=== PATIENT | male | born 1965 | race Caucasian/White ===

== ENCOUNTER → 2021-03-19 | Outpatient (CLI) | payer BC ==
--- NOTE | 2021-03-19 15:34 | Diagnostic Imaging Report ---
PROCEDURE: MRI pelvis without contrast. TECHNIQUE: Multiplanar, multisequence MRI of the pelvis was performed without contrast. INDICATION: Right inguinal pain. COMPARISON: None available. FINDINGS: Soft tissues: No inguinal hernia on either side. No femoral or other pelvic hernia is appreciated. No free pelvic fluid. Urinary bladder is normal. Prostate is not enlarged. No pelvic or inguinal lymphadenopathy. Muscles and tendons: Bilateral rectus abdominis insertion on the pubic bodies are intact. No tear of the adductor musculatures on either side. The proximal hamstring complexes are normal. Gluteus medius and minimus insertions are intact on both sides with some mild tendinopathy. Bilateral distal iliopsoas tendons are normal. Bones: There is a small amount of T2 hyperintense bone marrow edema in the left pubic body. No osteonecrosis of the femoral heads. No insufficiency fracture within the sacrum. SI joints have no features of sacroiliitis. No hip effusion either side. IMPRESSION: 1. Mild bone marrow edema like signal in the left pubic body is most likely degenerative in nature and could be a source of focal pain. 2. No inguinal hernia. 3. No strain or tear of the rectus abdominis muscles or adductor muscles. Dictated by: Dictated on workstation # [id number]
== END ==
LOC: RAD 10:36
PROVIDERS: ATTEND Family Medicine
DX: R60.0 Localized edema (principal); R10.31 Right lower quadrant pain
CPT/HCPCS: 72195

== ENCOUNTER 2021-04-18 03:22 | Emergency (ER) | payer BC ==
[2021-04-18] MEDS ORDERED: FAMOTIDINE 20 MG (PEPCID) TABLET ONE (03:48)
[2021-04-18] MEDS ORDERED: predniSONE 20 MG TAB ONE (03:49)
--- NOTE | 2021-04-18 03:52 | ED Integumentary General ---
General Chief Complaint: Skin/Wound Problems Stated Complaint: ALLERGIC REACTION Nursing Triage Note: Pt presents with hives that are throughout his whole body. Pt was seen at urgent care for the same issue on Thursday and received a steroid shot which cleared it all up for him. He states the hives reappeared tonight. Pt complaining of itching and burning History of Present Illness Date Seen by Provider: Apr 18, 2021 Time Seen by Provider: 03:40 Initial Comments 55-year-old male presents with an itchy rash. Rash initially began, suddenly 2 days ago all over his body (extremities chest and back). He was seen in urgent care and given shot of steroid in his symptoms resolved and yesterday he was fine. Denies any night the rash returned, again all over his body he took 50 mg of Benadryl in the back to sleep. He presents now with rash continuing, moderately itchy. No mouth or tongue involvement, no difficulty breathing. No history of anaphylaxis. No recent illness, fever or chills. No new medications or foods, unknown etiology., Allergies and Home Medications Allergies Coded Allergies: No Known Drug Allergies (Unverified , 04/18/21) Patient Home Medication List Home Medication List Reviewed: Yes Review of Systems Review of Systems Constitutional: No fever, No malaise, No weakness EENTM: no symptoms reported Respiratory: no symptoms reported Musculoskeletal: No back pain, No joint pain, No muscle pain Skin: see HPI, pruritus, rash Past Jivqqsi-Hwcnyl-Lglhhu Hx Past Med/Social Hx: Reviewed Nursing Past Med/Soc Hx Patient Social History Alcohol Use: Denies Use Smoking Status: Never a Smoker 2nd Hand Smoke Exposure: No Recent Infectious Disease Expo: No Recent Hopitalizations: No Past Medical History Surgeries: No Respiratory: No Cardiac: No Neurological: No Genitourinary: No Gastrointestinal: Yes Gastroesophageal Reflux Musculoskeletal: No Endocrine: No HEENT: No Cancer: No Psychosocial: No Integumentary: No Blood Disorders: No Physical Exam Vital Signs Vital Signs - First Documented 04/18/21 03:25 Temp 36.7 Pulse 65 Resp 18 B/P (MAP) 116/68 (84) Pulse Ox 95 O2 Delivery Room Air Capillary Refill : Less Than 3 Seconds General Appearance: WD/WN, no apparent distress HEENT: PERRL/EOMI, normal ENT inspection Neck: non-tender, supple Respiratory: chest non-tender, lungs clear, normal breath sounds Back: normal inspection, no CVA tenderness Extremities: normal range of motion, non-tender, no pedal edema Neurologic/Psychiatric: no motor/sensory deficits, alert, normal mood/affect, oriented x 3 Skin: rash (diffuse, assymetrical erythematous wheals and plaques of UE and LE's as well as sparsely of chest and low back. Sparing face) Progress/Results/Core Measures Results/Orders My Orders Orders - RSIRAM OBREGON DO Famotidine Tablet (Pepcid Tablet) (04/18/21 04:00) Prednisone Tablet (Deltasone Tablet) (04/18/21 04:00) Vital Signs/I&O 04/18/21 03:25 Temp 36.7 Pulse 65 Resp 18 B/P (MAP) 116/68 (84) Pulse Ox 95 O2 Delivery Room Air Blood Pressure Mean: 84 Departure Impression Primary Impression: Urticaria Disposition: 01 HOME, SELF-CARE Condition: Improved Departure-Patient Inst. Decision time for Depature: 03:51 Referrals: SELFSTONEY MD (PCP/Family) Primary Care Physician Patient Instructions: Hives Add. Discharge Instructions: Follow up with your PCP in 1 week if not improving, ER sooner if worsening. Follow an elimination diet and keep a food diary in order to find a potential cause. Take 50mg Benadryl every 6 hours as needed for itchy rash. All discharge instructions reviewed with patient and/or family. Voiced understanding. Scripts Famotidine (Pepcid) 20 Mg Tablet 20 MG PO BID, #30 TAB Prov: SRIRAM OBREGON DO 04/18/21 Prednisone (Prednisone) 20 Mg Tab 60 MG PO DAILY, #27 TAB 0 Refills 3 tabs po daily for 4 days, then 2 tabs po daily for 5 days, then 2 tabs po daily for 5 days Prov: SRIRAM OBREGON DO 04/18/21 SRIRAM OBREGON DO Apr 18, 2021 03:52
[2021-04-18 03:53] VITALS: BP 116/68
[2021-04-18] MEDS ORDERED: PRD20T PO (03:56)
[2021-04-18] MEDS ORDERED: FAMO-119 PO (03:56)
[2021-04-18] MEDS ORDERED: predniSONE 20 MG TAB PO ONE (04:00)
[2021-04-18] MEDS ORDERED: FAMOTIDINE 20 MG (PEPCID) TABLET PO ONE (04:00)
== END 2021-04-18 04:00 | disposition home or self-care (01) ==
LOC: EDUNIT# 03:22 → ER FS 03:24
DX: L50.9 Urticaria, unspecified (principal)
CPT/HCPCS: 99283

== ENCOUNTER 2021-11-13 09:19 | Outpatient (CLI) | payer BC ==
[~2021-11-13] VITALS: Ht 182.9 cm; Wt 96.2 kg
[~2021-11-13 09:19] MED LIST: FAMO-119 PO; PRD20T PO
[2021-11-14] MEDS ORDERED: OMEP40CA6 PO (10:22)
== END 2021-11-14 12:01 | disposition home or self-care (01) ==
LOC: PREOP 09:19
PROVIDERS: ATTEND Surgery
DX: Z01.818 Encounter for other preprocedural examination (principal)

== ENCOUNTER 2021-11-18 08:56 | Day surgery (SDC) | payer BC ==
[~2021-11-18] VITALS: Ht 182.9 cm; Wt 96.2 kg
[~2021-11-18 08:56] MED LIST changes: +OMEP40CA6 PO
[2021-11-18] MEDS ORDERED: LACTATED RINGERS 1,000 ML IV ONE (09:05)
[2021-11-18] MEDS ORDERED: LACTATED RINGERS 1,000 ML IV STA (09:17)
--- NOTE | 2021-11-18 09:47 | Progress Note-Pre Operative ---
Pre-Operative Progress Note H&P Reviewed The H&P was reviewed, patient examined and no changes noted. Time Seen by Provider: 09:44 Date H&P Reviewed: Nov 18, 2021 Time H&P Reviewed: 09:44 Pre-Operative Diagnosis: Screening colon, hx of hiatal hernia and esophageal stricture AMERICA GOODRICH DO Nov 18, 2021 09:47
[2021-11-18 10:05] VITALS: BP 112/79
[2021-11-18] MEDS ORDERED: proPOfol 200 MG/20 ML (DIPRIVAN) VIAL IV ONE (10:53)
[2021-11-18] MEDS ORDERED: PROPOFOL INJECTION 50 ML IV ONE (10:53)
[2021-11-18 11:35] VITALS: BP 108/68
[2021-11-18 11:40] VITALS: BP 106/69
--- NOTE | 2021-11-18 11:44 | Anesthesia-General Post-Op ---
MAC Patient Condition Mental Status/LOC: Same as Preop Cardiovascular: Satisfactory Nausea/Vomiting: Absent Respiratory: Satisfactory Pain: Controlled Complications: Absent Post Op Complications Complications None Follow Up Care/Instructions Patient Instructions None needed. Anesthesiology Discharge Order Discharge Order Patient is doing well, no complaints, stable vital signs, no apparent adverse anesthesia problems. No complications reported per nursing. LACIE BAI CRNA Nov 18, 2021 11:44
--- NOTE | 2021-11-18 11:44 | Progress Note-Post Operative ---
Post-Operative Progess Note Surgeon (s)/Pediatric Neurologist (s) Surgeon AMERICA GOODRICH DO Pediatric Neurologist: MARYBEL GlezII Pre-Operative Diagnosis Screening colon, hx of hiatal hernia and esophageal stricture Post-Operative Diagnosis Gastritis Large Hiatal hernia Polyp Int hemorrhoids Procedure & Operative Findings Date of Procedure 11/18/21 Procedure Performed/Findings EGD with bx Colon with hot bx PROCEDURE NOTE: After informed consent was obtained, the patient was brought to the endoscopy suite, placed in bed in left lateral decubitus position. He was administered IV sedation by the CYLINDER HANDLER who then monitored vitals the entire time, heart rate, blood pressure and pulse ox and the scope was inserted down the mouth through the esophagus into the stomach. On the way down, noted some a large hiatal hernia and took a picture. Pushed into the stomach and noted some mild gastritis; pushed past the antrum into the duodenum. Duodenum looked good. Pulled back and did a biopsy of antrum, then retroflexed the scope, saw a very large hiatal hernia and took a picture of this. Then pulled the scope into the GE junction, took another picture of the hiatal hernia and then did a biopsy of the GE junction. Pushed the scope back into the stomach, suctioned all the air out of the stomach. At this point pulled the scope up the esophagus and out the mouth. Switched camera, switched gloves, went down below, started the colonoscopy. Pushed all the way into about 150 cm to get all the way to cecum. Took a picture of the appendiceal orifice and noted the ileocecal valve. Then slowly withdrew the scope, insufflating to look circumferentially at the finney. Starting in the cecum, up the ascending colon where I found a flat polyp and elected to do a hot biopsy to remove it. Continued up to the hepatic flexure, then down the transverse colon, splenic flexure, into the descending colon, down into the sigmoid and finally into the rectum, retroflexed in the rectal vault, saw some minimal internal hemorrhoids and took a picture of this. The patient tolerated the procedure and he recovered in the endoscopy suite. Anesthesia Type IV sedation by CYLINDER HANDLER Estimated Blood Loss Estimated blood loss (mL): scant Specimens/Packing Specimens Removed antral bx GE jxn bx Asc colon polyp AMERICA GOODRICH DO Nov 18, 2021 11:44
--- NOTE | 2021-11-18 11:46 | Endoscopy Discharge Instruct ---
Endo Procedure/Findings Findings 1.: Gastritis 2.: Hiatal Hernia 3.: Polyp 4.: Internal Hemorrhoids Discharge Instructions - Activity: You might feel a little sleepy until tomorrow. This is due to the medicine you received to relax you. Until tomorrow, you should: NOT drive a car, operate machinery or power tools. NOT drink any alcoholic beverages. NOT make any important decisions or sign importortant papers. Do not return to work until tomorrow, unless otherwise instructed. Resume previous activities tomorrow. Diet: Start by taking liquids. If you tolerate liquids, advance to solid food. 1.: EGD in 1 year 2.: Colonscopy in 5 years Notify Physician - If you experience excessive bleeding, unusual abdominal pain, fever, or chest pain, contact your doctor immediately. AMERICA GOODRICH DO Nov 18, 2021 11:46
[2021-11-18 12:00] VITALS: BP 93/73
[2021-11-18 12:25] VITALS: BP 93/73
== END 2021-11-18 12:25 | disposition home or self-care (01) ==
LOC: ENDO 08:56
PROVIDERS: ATTEND Surgery
DX: Z12.11 Encounter for screening for malignant neoplasm of colon (principal); K29.70 Gastritis, unspecified, without bleeding; K44.9 Diaphragmatic hernia without obstruction or gangrene; K22.70 Barrett's esophagus without dysplasia; K21.00 Gastro-esophageal reflux disease with esophagitis, without bleeding; D12.2 Benign neoplasm of ascending colon; K64.8 Other hemorrhoids; Z79.899 Other long term (current) drug therapy

== ENCOUNTER 2023-04-09 08:55 | Outpatient (CLI) | payer BC ==
[~2023-04-09] VITALS: Ht 182.9 cm; Wt 98.4 kg
[2023-04-10] MEDS ORDERED: DEXT30SU PO (11:07)
[2023-04-10] MEDS ORDERED: ESOM20SU2 PO (11:07)
== END 2023-04-10 11:14 | disposition home or self-care (01) ==
LOC: PREOP 08:55
PROVIDERS: ATTEND Surgery
DX: Z01.818 Encounter for other preprocedural examination (principal)

== ENCOUNTER 2023-04-20 09:09 | Day surgery (SDC) | payer BC ==
[~2023-04-20] VITALS: Ht 182.9 cm; Wt 98.4 kg
[~2023-04-20 09:09] MED LIST changes: +DEXT30SU PO; +ESOM20SU2 PO
[2023-04-20] MEDS ORDERED: LACTATED RINGERS 1,000 ML IV STA (09:10)
[2023-04-20] MEDS ORDERED: HURRICAINE EXT TUBE (BENZOCAINE) XX PRN (09:15)
--- NOTE | 2023-04-20 09:33 | Progress Note-Pre Operative ---
Pre-Operative Progress Note Date of Available H&P: Apr 07, 2023 Date H&P Reviewed: Apr 20, 2023 Time H&P Reviewed: 09:30 History & Physical: H&P Reviewed, Patient Examed, No changes noted Pre-Operative Diagnosis: Hartley's Esophagus AMERICA GOODRICH DO Apr 20, 2023 09:33
[2023-04-20 09:59] VITALS: BP 113/78
[2023-04-20] MEDS ORDERED: PROPOFOL INJECTION 50 ML IV ONE (10:55)
[2023-04-20] MEDS ORDERED: MIDAZOLAM 2 MG/2 ML (VERSED) VIAL ONE (10:57)
[2023-04-20 11:15] VITALS: BP 103/73
--- NOTE | 2023-04-20 11:17 | Progress Note-Post Operative ---
Post-Operative Progess Note Surgeon (s)/Produce Specialist (s) Surgeon AMERICA GOODRICH DO Produce Specialist: none Pre-Operative Diagnosis Hartley's Esophagus Post-Operative Diagnosis Hiatal hernia large gastritis Procedure & Operative Findings Date of Procedure 04/20/23 Procedure Performed/Findings EGD with biopsy PROCEDURE NOTE: After informed consent was obtained, the patient was brought to the endoscopy suite, placed in bed in left lateral decubitus position. He was administered IV sedation by the VEGETABLE LOADER MACHINE OPERATOR who then monitored vitals the entire time, heart rate, blood pressure and pulse ox and the scope was inserted down the mouth through the esophagus into the stomach. On the way down, noted some mild esophagitis, took a picture, pushed into the stomach, pushed past the antrum into the duodenum. Duodenum looked good. Pulled back and did a biopsy of antrum, then retroflexed the scope, saw a large Grade IV AFS hiatal hernia, took a picture of this and then pulled the scope into the GE junction, took another picture of the hiatal hernia and then did a biopsy of the GE junction. Pushed the scope back into the stomach, suctioned all the air out of the stomach. At this point pulled the scope up the esophagus and out the mouth. The patient tolerated the procedure, and he recovered in endoscopy suite. Anesthesia Type IV sedation by VEGETABLE LOADER MACHINE OPERATOR Estimated Blood Loss Estimated blood loss (mL): scant Specimens/Packing Specimens Removed antral bx body of stomach GE jxn bx AMERICA GOODRICH DO Apr 20, 2023 11:17
--- NOTE | 2023-04-20 11:18 | Endoscopy Discharge Instruct ---
Endo Procedure/Findings Findings 1.: Hiatal Hernia 2.: Gastritis Discharge Instructions - Activity: You might feel a little sleepy until tomorrow. This is due to the medicine you received to relax you. Until tomorrow, you should: NOT drive a car, operate machinery or power tools. NOT drink any alcoholic beverages. NOT make any important decisions or sign importortant papers. Do not return to work until tomorrow, unless otherwise instructed. Resume previous activities tomorrow. Diet: Start by taking liquids. If you tolerate liquids, advance to solid food. 1.: EGD in 3 years Notify Physician - If you experience excessive bleeding, unusual abdominal pain, fever, or chest pain, contact your doctor immediately. Follow-Up: Other Follow up in my office in a week AMERICA GOODRICH DO Apr 20, 2023 11:17
[2023-04-20 11:20] VITALS: BP 106/73
[2023-04-20 11:25] VITALS: BP 106/61
[2023-04-20 12:15] VITALS: BP 106/61
== END 2023-04-20 12:15 | disposition home or self-care (01) ==
LOC: ENDO 09:09
PROVIDERS: ATTEND Surgery
DX: K21.00 Gastro-esophageal reflux disease with esophagitis, without bleeding (principal); K44.9 Diaphragmatic hernia without obstruction or gangrene; K29.70 Gastritis, unspecified, without bleeding; Z87.19 Personal history of other diseases of the digestive system